=== PATIENT | male | born 1965 | race Caucasian/White ===

== ENCOUNTER 2022-10-24 05:03 | Observation (INO) ==
--- NOTE | 2022-09-17 09:25 | PAT Medication Instructions ---
Medication Instructions Date of Service September 17, 2022 Home Medications cholecalciferol (vitamin D3) 25 mcg (1,000 unit) capsule (Vitamin D3) 25 mcg PO QPM Take evening before surgery cholecalciferol (vitamin D3) 25 mcg (1,000 unit) capsule (Vitamin D3) 25 mcg PO QPM Other Notes NOTHING TO EAT OR DRINK AFTER MIDNIGHT. If you have any questions please call us at [phone] or [phone] or [phone] or [phone]
--- NOTE | 2022-09-26 09:18 | Anesthesiology Consultation ---
Date of Service September 26, 2022 Assessment & Plan (1) Encounter for pre-operative examination: - awaiting booking change to overnight. - systolic murmur: Pt states this is chronic and reports echo from > 6 yrs ago was unremarkable. Per [facility], no significant valvular disease noted, study was in 2012. Case discussed in detail with Dr. Garg who advised given patient's functional status, he did not need an updated echocardiogram and can proceed without further evaluation or testing from his standpoint. - Outpatient joint pathway: Per surgeon and patient, plan for outpatient joint program. Per discussion with Dr. Garg, patient is NOT an acceptable candidate for Same Day Joint Program from anesthesia perspective given multiple co- morbidities. Surgeon's office made aware. Pt aware, denied questions or concerns. Chart Review Chart Review: Pending: Refer to Additional Notes / Consult section and Patient seen in Pre Admission Testing Teaching & Discussion Pre-Anesthesia Teaching/Discussion Notes: Instructed NPO after midnight before surgery, except medications with 15 cc of water. Medication instructions provided according to the PAT guidelines. History Surgery Operation Date: 10/24/22 11:40 Proposed Procedures p Left Anterior Total Hip Arthroplasty - Darshan Washington, Height/Weight Height: 5 ft 9 in Weight: 124.738 kg Allergies Allergy/AdvReac Type Severity Reaction Status Date / Time SULFA Allergy Unknown Hives Uncoded 09/16/22 09:03 Medications Home Medications Medication Instructions Recorded Confirmed Last Taken cholecalciferol (vitamin D3) 25 25 mcg PO QPM 09/16/22 09/16/22 Unknown mcg (1,000 unit) capsule (Vitamin D3) Past Medical History Medical History (Updated 09/26/22 @ 09:38 by Yolette Baum PA-C) GERD (gastroesophageal reflux disease) only with tomato soup Morbid obesity with BMI of 40.0-44.9, adult Prediabetes A1c 04/23/22 6.1% Prostate cancer under surveillance Suspected sleep apnea snoring and witnessed apneas per spouse, denies sleep studies Patient denies h/o stroke, seizures, heart attack, heart failure, HTN, blood clots or blood transfusions. Exercise / Class Metabolic Activity II 4-5 Yardwork/Stairs/Walk up hill (denies CP or SOB with 1 FOS) Past Family History Family History Other No family history of adverse response to anesthesia Past Surgical History Surgical History (Updated 09/26/22 @ 09:36 by Yolette Baum PA-C) History of colonoscopy History of prostate biopsy History of thumb surgery R History of vasectomy Past Anesthesia History No Hx of Anesthesia Complications and No Family Hx of Anesthesia Complications History of PONV No Hx of PONV and No Hx of Motion Sickness Social History Smoking Status: Never smoker Do You Dip or Chew Tobacco: No (quit 12 years ago) Hx Alcohol Use: Yes Alcohol type: beer, wine and hard liquor alcohol intake frequency: a few times a month Hx Substance Use: No substance use type: does not use Review of Systems Snoring and witnessed apneas per per pt, denies sleep studies. Patient denies chest pain, shortness of breath, dyspnea on exertion, fever, chills, cough, wheezing, or palpitations. Physical Exam Vital Signs Vitals BP 123/67 P 88 TEMP 98.7 SP02 95% on RA RESP 18 Physical Full cervical extension range of motion without pain TMD 3.5 finger breadths Mallampati Score 2 Dentition: intact, denies chipped or loose teeth, caps/crowns, implants or bridges Lungs: normal respiratory effort. Clear throughout to auscultation, no adventitious breath sounds Cardiac: regular rate and rhythm, 2/6 systolic murmur Carotid arteries: negative bruit bilat Lab Results Anesthesia Preop Results Results Anesthesia Widget: WBC 7.19 K/ul (4.8-10.8) 09/26/22 Hgb 14.4 g/dl (14.0-18.0) 09/26/22 Hct 44.6 % (40.1-51.0) 09/26/22 Plt 298 K/uL (130-400) 09/26/22 Na 141 mmol/L (136-145) 09/26/22 K 4.3 mmol/L (3.5-5.1) 09/26/22 Cl 106 mmol/L (98-107) 09/26/22 CO2 30 mmol/L (21-32) 09/26/22 BUN 15 mg/dl (6-23) 09/26/22 Creat 0.81 mg/dl (0.6-1.4) 09/26/22 Glucose Level 99 mg/dl (70-99(Fasting)) 09/26/22 PT 10.6 Seconds (9.0-12.0) 09/26/22 PTT 26.4 Seconds (21.0-31.0) 09/26/22 INR 1.0 (0.9-1.1) 09/26/22 Blood Type O Positive 09/26/22 Antibody Screen NEGATIVE 09/26/22 Testing Electrocardiogram Date: 09/26/22 NSR, rate 72 bpm RBBB Chest X-Ray Date: 09/26/22 Lung volumes are normal. Lungs are clear. There is no pneumothorax or pleural effusion. Cardiac size is normal. Mediastinal contours are normal. There is no evidence for pulmonary edema. IMPRESSION: No acute cardiopulmonary findings. COVID-19 Risk Screen Screening Information COVID-19 Screen Date: 09/26/22 Exposure 21 Days Family/Household +COVID Last 21 Days: No Exposure 10 Days Any COVID Exposure Last 10 Days: No Symptoms Last 10 Days Experienced COVID Sx Last 10 Days: No + COVID 0-90 Days COVID + in Last 0-90 Days: No
--- NOTE | 2022-10-23 07:22 | History & Physical Report ---
Date of Service October 23, 2022 Assessment & Plan (1) Osteoarthritis of left hip: We will proceed with a left anterior total of arthroplasty. Postoperatively he will be started on aspirin for DVT prophylaxis and kept overnight in the hospital for postoperative medical management. He plans to use [facility] upon discharge. History of Present Illness Chief Complaint: Osteoarthritis of the left hip. Primary Care Provider: Darshan Marx is a pleasant 56-year-old male who has been dealing with chronic worsening left hip and groin pain. 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 His hip hurts when he walks any distances. He cannot even lie flat at night. He had x-rays done of his left hip over a year ago, which showed severe osteoarthritis. He did therapy without relief. He saw an orthopedic sports med physician who gave him a single injection. He stated that the injection helped briefly. He is severely struggling with his hip. After failing conservative treatment, he has elected to proceed with a left anterior total of arthroplasty. Allergies Allergy/AdvReac Type Severity Reaction Status Date / Time SULFA Allergy Unknown Hives Uncoded 09/16/22 09:03 Home Medications Medication Instructions Recorded Confirmed Type cholecalciferol (vitamin D3) 25 25 mcg PO QPM 09/16/22 09/16/22 History mcg (1,000 unit) capsule (Vitamin D3) Past Med/Surg History Medical History GERD (gastroesophageal reflux disease) only with tomato soup Morbid obesity with BMI of 40.0-44.9, adult Prediabetes A1c 04/23/22 6.1% Prostate cancer under surveillance Suspected sleep apnea snoring and witnessed apneas per spouse, denies sleep studies Surgical History History of colonoscopy History of prostate biopsy History of thumb surgery R History of vasectomy Family History Other No family history of adverse response to anesthesia Social History Smoking Status: Never smoker Second Hand Exposure: No; Hx Alcohol Use: Yes Alcohol type: beer, wine and hard liquor Hx Substance Use: No Preferred Language: Bengali Communication Ability: Effective 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 Physical Exam On physical examination of the left hip, he has difficulty lying flat. I can flex him to 90 degrees. He has 0 degrees of internal rotation 20 degrees of external rotation. All of his pain is located in his groin.. Constitutional WD/WN, vitals as above Eyes PERRL, conjunctivae normal, anicteric sclerae ENMT external ear and nose normal, oropharynx normal Neck trachea midline, no thyromegaly Respiratory normal respiratory effort, lungs clear to auscultation Cardiovascular RRR, no murmur, no edema Gastrointestinal (Abdomen) normal bowel sounds, soft, nontender, no hepatosplenomegaly Skin no rashes, warm and dry Psychiatric A+Ox3, euthymic affect Results & Data Results & Data Laboratory Results . Diagnostic Findings X-rays of the left hip and pelvis show advanced osteoarthritis with joint space narrowing, osteophyte formation, and [id number] articulation. PG Care Time/CCT Total # of Minutes Spent Total Time Spent with Patient: Total time spent is greater than 50% in coordination of care (as documented) at patient's floor/unit and/or counseling patient: Coding Level of Care Code None Diagnoses Osteoarthritis of left hip M16.12
[2022-10-24] MEDS ORDERED: TRANEXAMIC ACID 1,000 MG **IV Intra-op IV SCH (06:00)
[2022-10-24] MEDS ORDERED: ACETAMINOPHEN 500 MG TAB PO SCH (06:00)
[2022-10-24] MEDS ORDERED: GABAPENTIN 300 MG CAP PO SCH (06:00)
[2022-10-24] MEDS ORDERED: ORTHO JOINT MIX INFIL SCH (06:00)
[2022-10-24] MEDS ORDERED: FAMOTIDINE 20 MG TAB PO SCH (06:00)
[2022-10-24] MEDS ORDERED: TRANEXAMIC ACID 1,000 MG **IV Pre-op IV SCH (06:00)
[2022-10-24] MEDS ORDERED: dexAMETHasone 4 MG TAB PO SCH (06:00)
[2022-10-24] MEDS ORDERED: LR 60ML/HR IV SCH (06:00)
[2022-10-24] MEDS ORDERED: LR 500ML BOLUS, THEN 15ML/HR IV SCH (06:00)
--- NOTE | 2022-10-24 06:20 | History & Physical Bridge Note ---
Date of Service October 24, 2022 History & Physical Bridge Note I have examined the patient, reviewed the History & Physical and in the interval since the performance of the History & Physical I have noted the following changes of clinical significance: no changes noted
[2022-10-24] MEDS ORDERED: BUPIVACAINE 0.5 % 5 MG/1 ML PF 10ML VIAL ONE (06:24)
[2022-10-24] MEDS ORDERED: fentaNYL citrate 100 MCG/2 ML VIAL ONE (06:41)
[2022-10-24] MEDS ORDERED: MIDAZOLAM HCL 1 MG/ML 2ML VIAL ONE ×2 (06:41)
[2022-10-24] MEDS ORDERED: PROPOFOL IV EMULSION 10 MG/ML 20 ML VIAL IV ONE (06:47)
[2022-10-24] MEDS ORDERED: LIDOCAINE 2% MPF LOCAL 5 ML VIAL INFIL ONE (06:51)
[2022-10-24] MEDS ORDERED: ORTHO JOINT ANESTHETIC ONE (06:53)
[2022-10-24] MEDS ORDERED: PHENYLEPHRINE 100MCG/ML 5ML SYR IV PRN (06:56)
[2022-10-24] MEDS ORDERED: HYDROmorphone INJ 1 MG/ML SYRINGE IV PRN (06:56)
[2022-10-24] MEDS ORDERED: ePHEDrine sulfate 50 MG/ML AMP IV PRN (06:56)
[2022-10-24] MEDS ORDERED: ATROPINE SULFATE 0.1 MG/ML 10ML SYR IV PRN (06:56)
[2022-10-24] MEDS ORDERED: KETOROLAC 30 MG/ML VIAL IV PRN (06:56)
[2022-10-24] MEDS ORDERED: ONDANSETRON INJ 2 MG/ML 2 ML VIAL IV PRN ×2 (06:56→10:10)
[2022-10-24] MEDS ORDERED: ONDANSETRON INJ 2 MG/ML 2 ML VIAL ONE (07:38)
[2022-10-24] MEDS ORDERED: ePHEDrine sulfate 50 MG/ML AMP ONE (07:38)
--- NOTE | 2022-10-24 08:11 | Operative Report ---
PG Post Operative Report Pre & Post Diagnosis Operation Date: 10/24/22 07:00 Pre-Op Diagnosis: Degenerative Joint Disease Left Hip Post-Op Diagnosis: Degenerative Joint Disease Left Hip I identified the patient and participated in the time-out.: Yes Procedure Operation Date: 10/24/22 07:00 Actual Procedures p Left Anterior Total Hip Arthroplasty(Left) - Darshan Washington DO Surgeon Darshan Washington DO English Tutor Darshan Márquez PA-C Estimated Blood Loss 250 Findings Consistent with Post-Op Diagnosis Specimens Left femoral head Description of Procedure Implants used I used a ZimmerBiomet total hip arthroplasty system with a size 4 high offset Avenir Complete stem, a 52 mm G7 cup with a 25mm screw, an E1 polyethylene li ner, a 36 mm ceramic head with a +3.5 neck. Ed arrived at the hospital for the above procedure. He was seen in the preoperative holding area and the operative extremity was identified and signed. He was given a spinal anesthetic, a preoperative antibiotic, and TXA. He was then taken back to the operating room and laid on the table in the supine position. He was given basic sedation. The operative leg was secured to a Puristst leg positioner. The hip was then prepped and draped in sterile fashion. A timeout was done and the patient and the operative extremity was properly identified. An anterior approach was used. Dissection was taken down through the fascia and the tensor muscle belly was retracted laterally and the rectus was retracted medially. The circumflex vessels were identified and ligated. The capsule was then incised and tagged for later repair. The femoral neck was then cut and the femoral head was removed. The acetabulum was exposed. Time was spent doing a complete circumferential labral release. Sequential reaming of the acetabulum up to a size 51 reamer was done. Final reamings were done under fluoroscopy to ensure appropriate version. A Biomet 52 mm G7 cup was then impacted into place. A single 25 mm screw was placed. The E1 polyethylene liner was then snapped into place. Surrounding soft tissues were then injected with 100 cc of an orthopedic pain control cocktail. The proximal femur was then exposed. Sequential broaching up to a size 4 broach was done. Off that broach a size 36 head with a +3.5 neck was trialed. The hip was reduced and fluoroscopic images showed anatomic alignment of the implants in acceptable length. The broach was removed. The final size 4 high offset Avenir Complete stem was then impacted into place. A ceramic 36 mm head with a +3.5 neck was then impacted onto the stem and the hip was reduced. Final fluoroscopic images showed anatomic alignment of the hip. The capsule was then closed with #1 Vicryl suture. A dilute betadyne lavage was then done for 3 minutes. The joint was then irrigated with normal saline solution. The fascia was closed with #1 PDS suture. Skin was closed with 2-0 Vicryl, kelsie, and a Silverlon dressing. He was then transferred to a hospital bed and taken to the post anesthesia care unit in stable condition. He tolerated the procedure well. Darshan Márquez PA-C, was present for the entire procedure. He was critical for patient positioning, prepping, draping, retraction exposure, wound closure and application of sterile dressing. I attest to the content of the Intraoperative Record and any orders documented therein. Any exceptions are noted below.
--- NOTE | 2022-10-24 09:41 | XRay Report ---
XR hip 1V LT w pelvis HISTORY: 56 years-old Male IN PACU - Post Surgical left hip total joint arthroplasty COMPARISON: Hip radiographs 08/05/2022 TECHNIQUE: AP view of the pelvis with crosstable lateral view of the left hip FINDINGS: Mild right hip osteoarthritis. Left hip total joint arthroplasty demonstrates satisfactory alignment. No acute fracture or unexpected opaque foreign body. Lateral skin kelsie are noted along with expec leslie postoperative soft tissue swelling with deep tissue air. Surgical clips of the scrotum. Pelvic ba sin phlebolith. IMPRESSION: Left hip total joint arthroplasty with expected postoperative changes. ACT 112: Negative or not required by law. The above report was generated using voice recognition software. It may contain grammatical, syntax o r spelling errors. Electronically signed by: Ralph Hagen M.D. 10/24/2022 9:39 AM
--- NOTE | 2022-10-24 09:53 | Fluoroscopy Report ---
FL hip LT 1V CLINICAL HISTORY: LT ANTRIOR TECHNIQUE: 1 views were obtained with the C-arm in the OR with the above procedure. Total fluoroscopy time was 16 seconds. Comparison: Comparison is made to hip radiograph 08/05/2022 FINDINGS/IMPRESSION: Intraoperative images were obtained of left hip total arthroplasty Please correlate with intraoperative fluoroscopy and operative report. ACT 112: Negative or not required by law. Electronically signed by: Juan Luis Riley M.D. 10/24/2022 9:52 AM
[2022-10-24] MEDS ORDERED: HYDROmorphone INJ 0.5 MG/0.5 ML SYR IV PRN (10:10)
[2022-10-24] MEDS ORDERED: MAGNESIUM HYDROXIDE SUSP 30 ML UDC PO PRN (10:10)
[2022-10-24] MEDS ORDERED: METOCLOPRAMIDE HCL INJ 5 MG/ML 2 ML VIAL IV PRN (10:10)
[2022-10-24] MEDS ORDERED: NALOXONE HCL 0.4 MG/1 ML VIAL/CARP IV PRN (10:10)
[2022-10-24] MEDS ORDERED: bisacodyL 10 MG SUPP PR PRN (10:10)
[2022-10-24] MEDS ORDERED: oxyCODONE HCL IR 5 MG TAB (IMMEDIATE RELEASE) PO PRN (10:10)
[2022-10-24] MEDS: SODIUM CHLORIDE 0.9% 1000ML 1,000 ML IV SCH ×2 (10:22→19:37)
[2022-10-24] MEDS: ASPIRIN 81 MG ECTAB PO SCH ×2 (10:42→21:02)
[2022-10-24] MEDS: MULTIVITAMIN TAB PO SCH (10:42)
[2022-10-24] MEDS: DOCUSATE SODIUM 100 MG CAP PO SCH ×2 (10:43→21:01)
--- NOTE | 2022-10-24 11:03 | Anesthesiology Progress Note ---
Date of Service October 24, 2022 Anesthesia Post Procedure Vital Signs Vital Signs: Temp Pulse Pulse Resp BP BP Pulse Ox 10/24/22 10:37 36.4 C L 64 18 123/76 100 10/24/22 10:11 36.4 C L 59 L 16 123/79 98 10/24/22 09:50 36.3 C L 69 17 118/64 98 10/24/22 09:40 62 19 98/64 L 95 10/24/22 09:30 69 14 115/80 96 10/24/22 09:20 69 14 104/57 L 97 10/24/22 09:10 72 21 109/65 96 10/24/22 09:00 71 19 108/64 97 10/24/22 08:50 66 16 104/59 L 98 10/24/22 08:40 84 14 104/69 98 10/24/22 08:33 36.7 C 87 16 105/74 97 10/24/22 05:33 36.9 C 80 20 144/82 H 98 O2 Del Method O2 Flow Rate 10/24/22 10:37 Room Air 10/24/22 10:11 Room Air 10/24/22 09:50 Room Air 10/24/22 09:40 Room Air 10/24/22 09:30 Room Air 10/24/22 09:20 Room Air 10/24/22 09:10 Room Air 10/24/22 09:00 Room Air 10/24/22 08:50 Oxymask 5 10/24/22 08:40 Oxymask 5 10/24/22 08:33 Oxymask 5 10/24/22 05:33 Room Air Transfer of Care Handoff Completed per policy Notes Mental Status: alert / awake / arousable Patient Amnestic to Procedure: Yes Nausea / Vomiting: adequately controlled Pain: adequately controlled Airway Patency, RR, SpO2: stable & adequate BP & HR: stable & adequate Hydration State: stable & adequate Neuraxial Anesthesia: was administered and sensory block is resolving Anesthetic Complications: no major complications apparent
[2022-10-24] MEDS: KETOROLAC 30 MG/ML VIAL IV SCH ×2 (12:08→17:03)
[2022-10-24] MEDS: ceFAZolin 2000MG 2,000 MG/15 ML SYR IV SCH ×2 (13:22→21:52)
[2022-10-24] MEDS: ACETAMINOPHEN 500 MG TAB PO SCH ×2 (13:22→21:02)
[2022-10-24] MEDS ORDERED: SENNA 8.6 MG TAB PO SCH (21:00)
[2022-10-25] MEDS: KETOROLAC 30 MG/ML VIAL IV SCH ×3 (00:04→11:05)
[2022-10-25] MEDS: ACETAMINOPHEN 500 MG TAB PO SCH (05:52)
[2022-10-25] MEDS: MULTIVITAMIN TAB PO SCH (07:14)
[2022-10-25] MEDS: ASPIRIN 81 MG ECTAB PO SCH (07:14)
[2022-10-25] MEDS: DOCUSATE SODIUM 100 MG CAP PO SCH (07:15)
[2022-10-25] MEDS ORDERED: dexAMETHasone 4 MG TAB PO SCH (08:00)
--- NOTE | 2022-10-25 08:14 | Orthopedic Progress Note ---
Date of Service October 25, 2022 Assessment & Plan (1) Status post left hip replacement: Overall he is doing very well. He is not having much pain in the left hip. He will be seen by physical therapy today for ambulation and range of motion exercises. He is on aspirin for DVT prophylaxis. He can be discharged home later today. He will follow-up with orthopedics in 2 weeks. Roberto Marx was seen and examined at bedside this morning. Overall is doing very well. Is not in any pain in the left hip. Has been up and ambulating to the bathroom. He has no complaints.. Review of Systems All systems reviewed & are unremarkable except as noted in HPI & below. Physical Exam On physical examination of the left hip, the dressing is clean and dry. His leg is out in full extension. He has active dorsiflexion plantarflexion of his left ankle.. Results & Data Results & Data Laboratory Results . Diagnostic Findings Postoperative x-rays of the left hip show the prosthesis to be in anatomic align ment without any evidence of fracture, desiccation, or loosening. PG Care Time/CCT Total # of Minutes Spent Total Time Spent with Patient: Total time spent is greater than 50% in coordination of care (as documented) at patient's floor/unit and/or counseling patient: Coding Level of Care Code 76879 Post Operative Follow-Up Diagnoses Status post left hip replacement Z96.642
--- NOTE | 2022-10-25 08:15 | Discharge Summary ---
Date of Service October 25, 2022 Admission HPI (Per Admitting) Francisco J is a pleasant 56-year-old male who has been dealing with chronic worsening left hip and groin pain. 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 His hip hurts when he walks any distances. He cannot even lie flat at night. He had x-rays done of his left hip over a year ago, which showed severe osteoarthritis. He did therapy without relief. He saw an orthopedic sports med physician who gave him a single injection. He stated that the injection helped briefly. He is severely struggling with his hip. After failing conservative treatment, he has elected to proceed with a left anterior total of arthroplasty. Admission Exam (Per Admitting) On physical examination of the left hip, he has difficulty lying flat. I can flex him to 90 degrees. He has 0 degrees of internal rotation 20 degrees of external rotation. All of his pain is located in his groin.. Principal Diagnosis Same as "Discharge Diagnosis" noted below under Discharge Instructions. Discharge Exam On physical examination of the left hip, the dressing is clean and dry. His leg is out in full extension. He has active dorsiflexion plantarflexion of his left ankle.. Discharge Data Procedures Performed Operation Date: 10/24/22 07:00 Actual Procedures p Left Anterior Total Hip Arthroplasty(Left) - Darshan Washington DO Ordered Studies 10/24/22 07:00 FL hip LT 1V Routine Hospital Course (1) Status post left hip replacement: On October 24, 2022 Francisco J arrived at [facility] and underwent a left hip replacement without complication. He had a spinal anesthetic. Postoperatively he was started on aspirin for DVT prophylaxis and transferred to the general orthopedic floors. His hospital course was uneventful. On postop day #1, his vital signs were stable and his pain was well controlled. He was able to participate well with physical therapy doing ambulation and range of motion exercises. He was then discharged home. He will follow-up with orthopedics in 2 weeks. PG Care Time/CCT Total # of Minutes Spent Total Time Spent with Patient: Total time spent is greater than 50% in coordination of care (as documented) at patient's floor/unit and/or counseling patient: Discharge Plan Discharge Items Patient Disposition: Home - Home Health Services Reason For Visit: DJD Left Hip Discharge Diagnosis: Left hip replacement Activity: Per Instructions section Non-emergency contact: Surgeon Call non-emergency contact if: your wound has increased redness and your wound has increased drainage Follow-up/Referrals: Jonathon Madden MD [Primary Care Provider] - Diet: Regular Addtl Attending Provider Instructions: Activity and Therapy Recommendations: * If you are using [facility] then therapy will be provided at your home until they feel you have accomplished all of your goals. * If you are using [facility] then Physical Therapy will be provided until they feel you are ready to start Outpatient Physical Therapy. * If you are not using home therapy then Outpatient Physical Therapy should start about 3-5 days from your day of surgery. Therapy will last about 6-10 weeks * You were shown a series of exercises in the hospital. Do these exercises three times each day including the exercises you were shown in physical therapy. * Get up and walk several times each day.~ For the first four weeks, try not to stand or walk for more than one hour at a time. If you do stand or walk for more than one hour, you will not hurt anything, but your leg will likely swell.~~ * As you feel comfortable, you may change from the walker or crutches to a cane and~then to independent walking. Medications: * Narcotic You will likely be sent home from the hospital with a prescription for the narcotic pain medication that worked best throughout your stay. * Aspirin Most patients will be required to take Aspirin 81mg twice a day for 6 weeks after surgery. This is obtained [id number] and a prescription is not necessary. * Other medications may be prescribed for specific circumstances. If you have any questions, please call the office at . * Resume previous home medications unless otherwise instructed TEDs/Elastic Stockings: The white elastic stockings help limit swelling and prevent blood clots from forming in your legs. The more you wear them, the more they work. Wear them for six weeks. Dressing Care: Leave the Silverlon dressing in place for 7 days. After 7 days you may remove the dressing. If the incision is not draining then you may leave the kelsie open to air. If there is a little bit of drainage or if the kelsie are getting stuck on your clothing then cover the incision with a dry dressing. The kelsie will be removed at your 2 week follow-up appointment. Showering: You may shower with the Silverlon dressing in place. Do not let the shower spray hit the dressing directly. Pat the Silverlon dressing dry. If the dressing becomes wet underneath, then simply remove the dressing. Keep the incision dry until you are 7 days out from the day of surgery. After 7 days you may remove the Silverlon dressing and shower with the kelsie exposed. Let soapy water run over the kelsie and pat them dry. Do not scrub or soak the incision. Things To Watch For: * Drainage from the incision site that occurs more than one week after your surgery. * Increased redness at the incision site. * Fever above 102 degrees Fahrenheit. * Unusual chest pain or shortness of breath. * Call [facility] at with any of the above problems Follow-Up Visit: Follow-up with Dr. Washington's PA (Darshan Márquez) 2-3 weeks after your day of surgery. He will remove your kelsie and answer any questions. If you have any additional questions or concerns, Dr Washington is usually in the office at the same time and will be available An appointment was probably scheduled when you signed-up for surgery in the office. If you have any questions call Office Instructions: More detailed instructions as well as Frequently Asked Questions were provided in a folder by our office when you signed-up for surgery. Please review these instructions when you get home. If you have any further questions or concerns, please feel free to call the office at [phone] Pending Studies at Discharge: No Stand-Alone Forms: [facility] Medications and DC Order Prescriptions: New aspirin 81 mg Tablet,Delayed Release (Dr/Ec) 81 mg PO BID 42 Days Qty: 84 0RF oxycodone-acetaminophen 5-325 mg tablet 1 tab PO Q6H PRN (Reason: pain) Qty: 30 0RF Continued cholecalciferol (vitamin D3) [Vitamin D3] 25 mcg (1,000 unit) Capsule 25 mcg PO QAM Discharge Orders: Discharge Order (Routine); Ordered 10/25/22 Ordered By: Darshan Washington Admission Data Admit Date/Time: 10/24/22 08:34 Attending Provider: Darshan Washington Admit Provider: Darshan Washington Primary Care Provider: Jonathon Madden Other Providers: [facility]
== END 2022-10-25 12:33 | disposition home health service (06) ==
LOC: 3E 05:03 → ASU 05:03